=== PATIENT | male | born 1975 | race Caucasian/White ===

== ENCOUNTER 2020-06-02 07:59 | Outpatient (REF) | payer OTHER, SELFPAY ==
[2020-06-02 08:26] LABS: COVID-19 Test Negative (Negative); IDNOW Serial# 55D5AD1C
== END 2020-06-02 08:00 | disposition home or self-care (01) ==
LOC: HO.EMPCOV 07:59
PROVIDERS: PCP Internal Medicine Medical Oncology; Visit Provider Internal Medicine Medical Oncology
DX: Z03.818 Encounter for observation for suspected exposure to other biological agents ruled out (principal)
CPT/HCPCS: 87635; C9803

== ENCOUNTER 2021-12-09 06:26 | Inpatient (IN) | payer MEDICAID, SELFPAY ==
[2021-12-09] VITALS (22 sets, daily range): BP systolic 98–159; BP diastolic 57–88; PULSE 100–161; RESP 12–32; TEMP 34.4–38.2; O2SAT 93–100; BMI 27.1
--- NOTE | 2021-12-09 | EEG_ITS ---
This is a 16-channel portable EEG performed in ICU. The patient was intubated and on propofol, but it was stopped before the EEG. Background EEG rhythm was low to medium amplitude fast with no obvious asymmetry or paroxysmal tendency. No definite sharp wave spikes, epileptic discharges, or asymmetry noted. Photic stimulation and hyperventilation were not performed. Cardiac lead revealed sinus tachycardia. IMPRESSION: No significant abnormality noted on this EEG. Cardiac lead revealed sinus tachycardia. MD RAVINDRA George/LISSETT / [id number]
--- NOTE | ~2021-12-09 | XR_ITS ---
EXAMINATION: XR CHEST CLINICAL INFORMATION: OG tube and endotracheal tube placement COMPARISON: None TECHNIQUE: Frontal view of the chest was obtained. FINDINGS: Status post endotracheal tube placement with its distal tip approximately 4.6 cm from the level of the mega. Enteric tube courses through the esophagus below the left hemidiaphragm, its distal portion is not included in the [id number] though presumably within the stomach. Bilateral low lung volumes. Slight accentuation of the pulmonary vasculature. No pneumothorax. Trachea is midline. Cardiomediastinal silhouette is not enlarged. No large pleural effusion. Osseous structures are intact. Soft tissues are unremarkable. XR/XR chest 1V IMPRESSION: 1. Status post endotracheal tube placement with its distal tip approximately 4.6 cm from the level of the mega. 2. Enteric tube courses through the esophagus below the left hemidiaphragm, its distal portion is not included in the [id number] though presumably within the stomach. 3. Bilateral low lung volumes. 4. Slight accentuation of the pulmonary vasculature.
--- NOTE | ~2021-12-09 | CT_ITS ---
EXAMINATION: CT HEAD WITHOUT CONTRAST CLINICAL INFORMATION: Fall unresponsive COMPARISON: None TECHNIQUE: Contiguous axial imaging was performed from the skull base to vertex without intravenous administration of contrast. This CT examination was performed using dose optimization techniques as appropriate, variously including the following: *Automated exposure control *Adjustment of mA and/or kV according to patient size (this includes techniques or standardized protocols for targeted exams where dose is matched to indication/reason for exam; i.e. extremities or head) *Use of iterative reconstruction technique DLP: 1363 mGy-cm FINDINGS: There is no evidence of acute intracranial hemorrhage or territorial infarction. No abnormal mass effect or midline shift is seen. [place] to white matter differentiation is well preserved. No extra-axial fluid collections are identified. The ventricles are normal in size. There is no abnormal attenuation within the brain parenchyma. Mild hyperostosis frontalis interna. The osseous structures and soft tissues are normal. Mucoperiosteal thickening of the maxillary sinus with partially visualized calcifications. The mastoid air cells and visualized portions of the paranasal sinuses are well aerated. CT/CT cervical spine wo con IMPRESSION: No acute intracranial pathology. EXAMINATION: Noncontrast CT scan of the cervical spine. INDICATION: Fall unresponsive COMPARISON: None. TECHNIQUE: Helical, multidetector axial images were obtained from the occiput to the upper thorax. Coronal and sagittal reformats of the cervical spine were provided for interpretation. DLP: 1363 mGy-cm FINDINGS: No acute fractures or dislocations of the cervical spine are seen. Mild multilevel degenerative changes. Anatomic alignment and positioning of the vertebral bodies and posterior elements is noted. The atlantoaxial joint and craniovertebral articulations are normal without evidence of subluxation. There is no prevertebral soft tissue swelling. The thyroid gland and visualized portions of the lung apices and mediastinum are unremarkable. Endotracheal tube in place. IMPRESSION: 1. No acute visible fracture or dislocation. 2. Mild multilevel degenerative changes. 3. Endotracheal tube in place.
--- NOTE | 2021-12-09 06:34 | ECG_ITS ---
Test Reason : UNRESPONSIVE Blood Pressure : / mmHG Vent. Rate : 169 BPM Atrial Rate : 000 BPM P-R Int : 000 ms QRS Dur : 094 ms QT Int : 298 ms P-R-T Axes : 000 010 047 degrees QTc Int : 499 ms Artifact in tracing Likely Sinus tachycardia Possible Inferior infarct , age undetermined Abnormal ECG No previous ECGs available Referred By: Deborah Fortune Electronically Signed By:CURLY GARCIA
[2021-12-09 06:47] LABS: MANUAL DIFF FLAG NO
[2021-12-09 06:51] LABS: Basophils Percent Auto 0.3 % (0-2); Eosinophils Absolute Auto 0.1 X10*3/uL (0.0-0.4); Eosinophils Percent Auto 1.1 % (0-4); Hematocrit 40.8 % (42.0-52.0); Hemoglobin 13.1 g/dl (14.0-18.0); Imm Gran Abs Auto 0.07 X10*3/uL (0.00-0.03); Imm Gran Pct Auto 1.1 % (0.0-0.4); Lymphocytes Absolute Auto 1.8 X10*3/uL (1.2-4.9); Lymphocytes Percent Auto 28.5 % (20-40); Mean Corpuscular HGB Conc 32.1 g/dl (31.0-36.0); Mean Corpuscular Hemoglobin 34.7 pg (27.0-33.0); Mean Corpuscular Volume 107.9 fL (80.0-98.0); Monocytes Absolute Auto 0.8 X10*3/uL (0.1-1.2); Monocytes Percent Auto 13.1 % (2-11); Neutrophils Absolute Auto 3.4 x10*3/uL (2.0-8.3); Neutrophils Percent Auto 55.9 % (45-73); Red Blood Count 3.78 X10*6/uL (4.60-5.80); Red Cell Distribution Width 16.1 % (11.0-16.0); White Blood Count 6.2 X10*3/uL (4.8-10.8)
[2021-12-09 06:52] LABS: Platelet Count 44 X10*3/uL (160-400)
[2021-12-09 06:57] LABS: Acetone, serum QL Negative (Negative)
[2021-12-09] MEDS: Midazolam HCl/PF 2 MG/2 ML VIAL IVPUSH (07:00)
[2021-12-09] MEDS: propofoL 1,000 MG/100 ML VIAL 4.73 MG IVCONT ×2 (07:00→22:23)
[2021-12-09] MEDS: Succinylcholine Chloride 200 MG/10 ML VIAL 100 MG IVPUSH (07:00)
[2021-12-09 07:03] LABS: INTERNATIONAL NORM RATIO 1.3 (0.9-1.1); Prothrombin Time 14.4 SEC (9.9-13.0)
--- NOTE | 2021-12-09 07:04 | ED_ITS ---
HPI - General Adult General Chief complaint: Seizure Stated complaint: SEIZURE Time Seen by Provider: 12/09/21 06:34 Source: family (Father) and EMS Mode of arrival: EMS Limitations: altered mental status History of Present Illness HPI narrative: 46 years old male came in for evaluation of being unresponsive. 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 No documentation of recent alcohol abuse. Father declined history of drug abuse. Related Data Allergies Allergy/AdvReac Type Severity Reaction Status Date / Time Seasonal Allergy Unknown Uncoded 02/29/12 00:00 Review of Systems Review of Systems: Yes unobtainable due to endotracheal tube and Unobtainable due to mental condition [facility] Social History Social History Alcohol intake: current Patient Tobacco Use Status: Tobacco use Unknown Use of substances other than those prescribed or required for medical reasons: Unable to respond Advance Directives: No Physical Exam ED Vital Signs: Vital Signs - 24 hr 12/09/21 07:01 12/09/21 08:00 12/09/21 08:39 Temperature 100.0 F Pulse Rate 136 H Respiratory Rate 18 Blood Pressure 113/75 Pulse Oximetry 100 Oxygen Delivery Method Mechanical Ventilation Fraction of Inspired Oxygen 50 50 40 BMI result Body Mass Index 27.1 Vital signs have been reviewed as appeared to be correct. Blood pressure kati l. Heart rate normal. Respiration rate normal. Temperature normal. Oxygen saturation normal. Appearance: Unresponsive, with continuous seizure activity. Head: Normal external exam. Normocephalic. Atraumatic. No Thomas signs noted. No raccoon eyes noted, dry red blood around his mouth. Eyes: PERRLA. EOMI. Conjunctiva and sclera normal. Eyelids normal. ENT: TM's Normal. Pharynx normal. Uvula midline. Moist mucous membranes. No trismus noted. No drooling noted. No muffled voice noted. Neck: Normal inspection. Neck supple. FROM. No adenopathy. Thyroid Normal. No meningeal signs. No neck mass noted. CVS: Normal heart rate and rhythm. Heart sound normal. No murmurs noted. Pulses normal throughout. Respiratory: No respiratory distress. Painless inspiration. Breath sounds normal. No wheezes/rales/rhonchi noted. Chest nontender. No accessory muscle usage noted or decreased air movement noted. Abdomen: Soft and nontender. Bowel sounds normal in all 4 quadrants. No distention noted. No organomegaly noted. No visible injury noted. Back: No CVA tenderness. Full range of motion noted. Skin: Skin warm and dry. Normal skin color. Normal skin turgor. No rashes/lesions/lacerations noted. Extremities: No lower extremity edema. Extremities exhibit normal range of motion. Extremities nontender. Neuro: Unresponsive Cranial nerve exam: II-XII are grossly intact No motor deficit. No sensory deficit. Reflexes normal. Course Course Course Narrative: Assessment and plan. 46-year-old male came in for evaluation of pain unresponsive, patient sustained status epilepticus in the ED, required intubation and multiple doses of Ativan/Versed, patient is on propofol drip patient also received a load of Dilantin, needed intubation for continuous propofol drip and muscle paralysis, will admit to ICU. The case was discussed with Dr. Deleon. Severe metabolic acidosis will increase respiratory rate with increased sedation. NG tube draining mix of blood and coffee-ground, will start the patient on Protonix. And keep monitoring the gastric output. Procedures Intubation Time out performed: Yes sedative: Versed paralytic: Succinylcholine Laryngoscope: More ET Tube Size: 7.5 ET Tube Uncuffed: No Tube Secured Depth (cm): 23 Tube Secured Location: lips Tube Placement Confirmation: visualized tube passing through cords, equal breath sounds bilaterally, no breath sounds over epigastrium and confirmation by capnometry Patient Tolerated Procedure: well Intubation Complications: none Medical Decision Making Lab Data Lab results reviewed: Yes I reviewed the patient's lab results. Result diagrams: 12/09/21 06:37 12/09/21 06:37 Labs: Lab Results 12/09/21 12/09/21 12/09/21 Range/Units 06:37 06:37 06:37 WBC 6.2 (4.8-10.8) X10*3/uL RBC 3.78 L (4.60-5.80) X10*6/uL Hgb 13.1 L (14.0-18.0) g/dl Hct 40.8 L (42.0-52.0) % MCV 107.9 H (80.0-98.0) fL MCH 34.7 H (27.0-33.0) pg MCHC 32.1 (31.0-36.0) g/dl RDW 16.1 H (11.0-16.0) % Plt Count 44 L (160-400) X10*3/uL MPV 11.0 (9.4-12.4) fL Immature Gran % (Auto) 1.1 H (0.0-0.4) % Neut % (Auto) 55.9 (45-73) % Lymph % (Auto) 28.5 (20-40) % [place] % (Auto) 13.1 H (2-11) % Eos % (Auto) 1.1 (0-4) % Baso % (Auto) 0.3 (0-2) % Lymph # (Auto) 1.8 (1.2-4.9) X10*3/uL [place] # (Auto) 0.8 (0.1-1.2) X10*3/uL Eos # (Auto) 0.1 (0.0-0.4) X10*3/uL Baso # (Auto) 0.0 (0.0-0.2) X10*3/uL Abs Immat Gran (auto) 0.07 H (0.00-0.03) X10*3/uL Absolute Neuts (auto) 3.4 (2.0-8.3) x10*3/uL Absolute Nucleated RBC 0.000 (0.0-0.012) X10*3/uL Nucleated RBC % (auto) 0.0 (0.0-0.2) /100WBC PT 14.4 H (9.9-13.0) SEC INR 1.3 H (0.9-1.1) VBG pH (7.32-7.43) VBG pCO2 mmHg VBG pO2 mmHg VBG HCO3 (22-26) mmol/L VBG O2 Saturation % VBG Base Excess mmol/L Sodium 141 (135-145) mmol/L Potassium 3.7 (3.3-5.1) mmol/L Chloride 95 L (96-108) mmol/L Carbon Dioxide 7 L* (22-29) mmol/L Anion Gap 43 H (12-20) BUN 7 L (9-16) mg/dL Creatinine 1.14 (0.5-1.4) mg/dL Estim Creat Clear Calc TNP Estimated GFR > 60 Random Glucose 114 (60-115) mg/dL Lactic Acid (0.5-2.0) mmol/L Calcium 9.1 (8.4-10.2) mg/dL Magnesium 2.8 H (1.6-2.6) mg/dL Total Bilirubin 5.6 H (0.0-1.0) mg/dL AST 268 H (5-37) U/L ALT 108 H (0-40) U/L Alkaline Phosphatase 134 H (39-117) U/L Ammonia (13-55) umol/L Total Protein 8.6 H (6.5-8.0) g/dL Albumin 3.9 (3.5-5.0) g/dL Urine Color Urine Appearance Urine pH (5.0-8.0) Ur Specific [place] (1.005-1.025) Urine Protein (NEG-TRACE) MG/DL Urine Glucose (UA) (NEG) MG/DL Urine Ketones (NEG) MG/DL Urine Blood (NEG) Urine Nitrite (NEG) Ur Leukocyte Esterase (NEG) Urine RBC (0) /HPF Urine WBC (0-4) /HPF Ur Squamous Epith Cells /LPF Urine Bacteria /LPF Hyaline Casts /LPF Ethyl Alcohol mg/dL Acetone, Qual (Negative) COVID-19 (REGINE) (Negative) COVID-19 Clin Com 12/09/21 12/09/21 12/09/21 Range/Units 06:37 06:37 06:37 WBC (4.8-10.8) X10*3/uL RBC (4.60-5.80) X10*6/uL Hgb (14.0-18.0) g/dl Hct (42.0-52.0) % MCV (80.0-98.0) fL MCH (27.0-33.0) pg MCHC (31.0-36.0) g/dl RDW (11.0-16.0) % Plt Count (160-400) X10*3/uL MPV (9.4-12.4) fL Immature Gran % (Auto) (0.0-0.4) % Neut % (Auto) (45-73) % Lymph % (Auto) (20-40) % [place] % (Auto) (2-11) % Eos % (Auto) (0-4) % Baso % (Auto) (0-2) % Lymph # (Auto) (1.2-4.9) X10*3/uL [place] # (Auto) (0.1-1.2) X10*3/uL Eos # (Auto) (0.0-0.4) X10*3/uL Baso # (Auto) (0.0-0.2) X10*3/uL Abs Immat Gran (auto) (0.00-0.03) X10*3/uL Absolute Neuts (auto) (2.0-8.3) x10*3/uL Absolute Nucleated RBC (0.0-0.012) X10*3/uL Nucleated RBC % (auto) (0.0-0.2) /100WBC PT (9.9-13.0) SEC INR (0.9-1.1) VBG pH (7.32-7.43) VBG pCO2 mmHg VBG pO2 mmHg VBG HCO3 (22-26) mmol/L VBG O2 Saturation % VBG Base Excess mmol/L Sodium (135-145) mmol/L Potassium (3.3-5.1) mmol/L Chloride (96-108) mmol/L Carbon Dioxide (22-29) mmol/L Anion Gap (12-20) BUN (9-16) mg/dL Creatinine (0.5-1.4) mg/dL Estim Creat Clear Calc Estimated GFR Random Glucose (60-115) mg/dL Lactic Acid 31.8 H* (0.5-2.0) mmol/L Calcium (8.4-10.2) mg/dL Magnesium (1.6-2.6) mg/dL Total Bilirubin (0.0-1.0) mg/dL AST (5-37) U/L ALT (0-40) U/L Alkaline Phosphatase (39-117) U/L Ammonia (13-55) umol/L Total Protein (6.5-8.0) g/dL Albumin (3.5-5.0) g/dL Urine Color Urine Appearance Urine pH (5.0-8.0) Ur Specific [place] (1.005-1.025) Urine Protein (NEG-TRACE) MG/DL Urine Glucose (UA) (NEG) MG/DL Urine Ketones (NEG) MG/DL Urine Blood (NEG) Urine Nitrite (NEG) Ur Leukocyte Esterase (NEG) Urine RBC (0) /HPF Urine WBC (0-4) /HPF Ur Squamous Epith Cells /LPF Urine Bacteria /LPF Hyaline Casts /LPF Ethyl Alcohol 24 mg/dL Acetone, Qual Negative (Negative) COVID-19 (REGINE) (Negative) COVID-19 Clin Com 12/09/21 12/09/21 12/09/21 Range/Units 06:37 06:58 07:51 WBC (4.8-10.8) X10*3/uL RBC (4.60-5.80) X10*6/uL Hgb (14.0-18.0) g/dl Hct (42.0-52.0) % MCV (80.0-98.0) fL MCH (27.0-33.0) pg MCHC (31.0-36.0) g/dl RDW (11.0-16.0) % Plt Count (160-400) X10*3/uL MPV (9.4-12.4) fL Immature Gran % (Auto) (0.0-0.4) % Neut % (Auto) (45-73) % Lymph % (Auto) (20-40) % [place] % (Auto) (2-11) % Eos % (Auto) (0-4) % Baso % (Auto) (0-2) % Lymph # (Auto) (1.2-4.9) X10*3/uL [place] # (Auto) (0.1-1.2) X10*3/uL Eos # (Auto) (0.0-0.4) X10*3/uL Baso # (Auto) (0.0-0.2) X10*3/uL Abs Immat Gran (auto) (0.00-0.03) X10*3/uL Absolute Neuts (auto) (2.0-8.3) x10*3/uL Absolute Nucleated RBC (0.0-0.012) X10*3/uL Nucleated RBC % (auto) (0.0-0.2) /100WBC PT (9.9-13.0) SEC INR (0.9-1.1) VBG pH 6.96 L* (7.32-7.43) VBG pCO2 27 mmHg VBG pO2 143 mmHg VBG HCO3 6 L (22-26) mmol/L VBG O2 Saturation 96.0 % VBG Base Excess -24.2 mmol/L Sodium (135-145) mmol/L Potassium (3.3-5.1) mmol/L Chloride (96-108) mmol/L Carbon Dioxide (22-29) mmol/L Anion Gap (12-20) BUN (9-16) mg/dL Creatinine (0.5-1.4) mg/dL Estim Creat Clear Calc Estimated GFR Random Glucose (60-115) mg/dL Lactic Acid (0.5-2.0) mmol/L Calcium (8.4-10.2) mg/dL Magnesium (1.6-2.6) mg/dL Total Bilirubin (0.0-1.0) mg/dL AST (5-37) U/L ALT (0-40) U/L Alkaline Phosphatase (39-117) U/L Ammonia 162 H (13-55) umol/L Total Protein (6.5-8.0) g/dL Albumin (3.5-5.0) g/dL Urine Color YELLOW Urine Appearance CLEAR Urine pH 6.0 (5.0-8.0) Ur Specific [place] >= 1.030 H (1.005-1.025) Urine Protein 2+ H (NEG-TRACE) MG/DL Urine Glucose (UA) NEG (NEG) MG/DL Urine Ketones 15 (NEG) MG/DL Urine Blood 3+ H (NEG) Urine Nitrite NEG (NEG) Ur Leukocyte Esterase NEG (NEG) Urine RBC 5-9 H (0) /HPF Urine WBC 0 (0-4) /HPF Ur Squamous Epith Cells 1+ /LPF Urine Bacteria NONE /LPF Hyaline Casts 0-2 /LPF Ethyl Alcohol mg/dL Acetone, Qual (Negative) COVID-19 (REGINE) (Negative) COVID-19 Clin Com 12/09/21 Range/Units 07:51 WBC (4.8-10.8) X10*3/uL RBC (4.60-5.80) X10*6/uL Hgb (14.0-18.0) g/dl Hct (42.0-52.0) % MCV (80.0-98.0) fL MCH (27.0-33.0) pg MCHC (31.0-36.0) g/dl RDW (11.0-16.0) % Plt Count (160-400) X10*3/uL MPV (9.4-12.4) fL Immature Gran % (Auto) (0.0-0.4) % Neut % (Auto) (45-73) % Lymph % (Auto) (20-40) % [place] % (Auto) (2-11) % Eos % (Auto) (0-4) % Baso % (Auto) (0-2) % Lymph # (Auto) (1.2-4.9) X10*3/uL [place] # (Auto) (0.1-1.2) X10*3/uL Eos # (Auto) (0.0-0.4) X10*3/uL Baso # (Auto) (0.0-0.2) X10*3/uL Abs Immat Gran (auto) (0.00-0.03) X10*3/uL Absolute Neuts (auto) (2.0-8.3) x10*3/uL Absolute Nucleated RBC (0.0-0.012) X10*3/uL Nucleated RBC % (auto) (0.0-0.2) /100WBC PT (9.9-13.0) SEC INR (0.9-1.1) VBG pH (7.32-7.43) VBG pCO2 mmHg VBG pO2 mmHg VBG HCO3 (22-26) mmol/L VBG O2 Saturation % VBG Base Excess mmol/L Sodium (135-145) mmol/L Potassium (3.3-5.1) mmol/L Chloride (96-108) mmol/L Carbon Dioxide (22-29) mmol/L Anion Gap (12-20) BUN (9-16) mg/dL Creatinine (0.5-1.4) mg/dL Estim Creat Clear Calc Estimated GFR Random Glucose (60-115) mg/dL Lactic Acid (0.5-2.0) mmol/L Calcium (8.4-10.2) mg/dL Magnesium (1.6-2.6) mg/dL Total Bilirubin (0.0-1.0) mg/dL AST (5-37) U/L ALT (0-40) U/L Alkaline Phosphatase (39-117) U/L Ammonia (13-55) umol/L Total Protein (6.5-8.0) g/dL Albumin (3.5-5.0) g/dL Urine Color Urine Appearance Urine pH (5.0-8.0) Ur Specific [place] (1.005-1.025) Urine Protein (NEG-TRACE) MG/DL Urine Glucose (UA) (NEG) MG/DL Urine Ketones (NEG) MG/DL Urine Blood (NEG) Urine Nitrite (NEG) Ur Leukocyte Esterase (NEG) Urine RBC (0) /HPF Urine WBC (0-4) /HPF Ur Squamous Epith Cells /LPF Urine Bacteria /LPF Hyaline Casts /LPF Ethyl Alcohol mg/dL Acetone, Qual (Negative) COVID-19 (REGINE) Negative (Negative) COVID-19 Clin Com See Note Imaging Data Head/cervical spine CT: Attestation: I personally reviewed and interpreted this imaging study as follows: Radiologist's impression: 1.? No acute visible fracture or dislocation. 2.? Mild multilevel degenerative changes. 3.? Endotracheal tube in place. ? Critical Care Time Critical Care Time Critical Care Time: Yes Total Critical Care Time: 90 Attestation: I spent 90 minutes providing critical care service to the patient, this including time spent at the bedside to evaluate the patient, reassess the patient, monitoring vital signs, review labs, and radiographic studies, counseling the patient/family, discussing the case with consultants, disposition the patient. Discharge Plan Discharge Clinical Impression: Status epilepticus Patient Disposition: Admitted As Inpatient
[2021-12-09 07:05] LABS: Ethanol 24 mg/dL
[2021-12-09 07:15] LABS: Alanine Aminotransferase 108 U/L (0-40); Albumin Level 3.9 g/dL (3.5-5.0); Alkaline Phosphatase 134 U/L (39-117); Anion Gap 43 (12-20); Aspartate Amino Transferase 268 U/L (5-37); Bilirubin Total 5.6 mg/dL (0.0-1.0); Blood Urea Nitrogen 7 mg/dL (9-16); Calcium 9.1 mg/dL (8.4-10.2); Carbon Dioxide 7 mmol/L (22-29); Chloride 95 mmol/L (96-108); Estimated Glomerular Filt Rate > 60; Glucose Random 114 mg/dL (60-115); Magnesium 2.8 mg/dL (1.6-2.6); Potassium 3.7 mmol/L (3.3-5.1); Sodium 141 mmol/L (135-145); Total Protein 8.6 g/dL (6.5-8.0)
[2021-12-09] MEDS: LORazepam 2 MG/ML VIAL IVPUSH ×2 (07:18→08:04)
[2021-12-09] MEDS: fentaNYL citrate/PF 100 MCG/2 ML VIAL 25 MCG IVPUSH (07:18)
[2021-12-09 07:34] LABS: Lactic Acid 31.8 mmol/L (0.5-2.0)
[2021-12-09] MEDS: Midazolam HCl/NS 50 MG/50 ML PLAST..BAG IVCONT (07:50)
--- NOTE | 2021-12-09 08:05 | PC.NURSE ---
0741 additional 2mg versed administered IVP for seizure activity
[2021-12-09 08:11] LABS: Ammonia 162 umol/L (13-55)
[2021-12-09 08:11] LABS: Appearance Urine CLEAR; Color Urine YELLOW; Glucose Urine UA NEG (NEG); Leukocyte Esterase Urine NEG (NEG); Nitrite Urine NEG (NEG); Specific Gravity - Urine >= 1.030 (1.005-1.025); UACC Culture Trigger NO; Urine Blood 3+ (NEG); Urine Ketones 15 MG/DL (NEG); Urine Protein 2+ MG/DL (NEG-TRACE)
[2021-12-09 08:12] LABS: COVID-19 Test Negative (Negative); IDNOW Serial# 16C4AD1C
[2021-12-09 08:20] LABS: VBG Base Excess -24.2 mmol/L; VBG HCO3 6 mmol/L (22-26); VBG pCO2 27 mmHg; VBG pO2 143 mmHg
[2021-12-09 08:21] LABS: VBG pH 6.96 (7.32-7.43); Venous Blood Gas Refer to POC result
[2021-12-09 08:23] LABS: Hyaline Casts Urine 0-2 /LPF; Squamous Epithelial Cell Urine 1+ /LPF
[2021-12-09] MEDS: Thiamine HCL 100 MG in 0.9 % Sodium Chloride 100 ML 202 MG IV (08:26)
[2021-12-09 08:27] LABS: WBC Urine 0 /HPF (0-4)
--- NOTE | 2021-12-09 08:35 | PC.NURSE ---
small sedation holiday done for Dr. Deleon, prop decreased to 30mcg/kg/hr for approximately 3 minutes. Rate increased back to 50mcg/kg/min
--- NOTE | 2021-12-09 08:39 | PC.NURSE ---
Rate increased to 30 on vent by marketing teacher. 2nd L of NS hung per verbal order from dr. peters.
--- NOTE | 2021-12-09 08:44 | P.CNNE_ITS ---
History of Present Illness Data of Consult Service Date: 12/09/21 Primary Care Provider: Unknown Physician HPI Reason for consult: Status epilepticus 46 years old man who probably has underlying history of chronic alcoholism and related complications including alcoholic liver disease was found to be unresponsive in his room after his father heard a noise. Blood was noted around his mouth and he was brought to emergency room where he was noted to have generalized convulsion type of movements. He was given multiple doses of benzodiazepine and ultimately was paralyzed, sedated and intubated. When I saw him he was on propofol drip. According to the documentation, he lived in [place]. 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 Also he had a similar episode in [place] but apparently he was not on any seizure medicine. Review of Systems Review of Systems: Could not be done with him PMFSH Social History Social History Alcohol intake: current Patient Tobacco Use Status: Tobacco use Unknown Use of substances other than those prescribed or required for medical reasons: Unable to respond Advance Directives: No Meds Allergies Allergy/AdvReac Type Severity Reaction Status Date / Time Seasonal Allergy Unknown Uncoded 02/29/12 00:00 Active Medications: Current Medications Propofol (Diprivan) 1,000 mg in 100 mls @ 0 mls/hr IVCONT .Q0M [facility]; Protocol Last Titration: 12/09/21 08:34 Dose: 50 mcg/kg/min, 23.64 mls/hr Midazolam HCl (Versed) 50 mg in 50 mls @ 2 mls/hr IVCONT .Q24H [facility] Last Admin: 12/09/21 07:50 Dose: 2 mg/hr, 2 mls/hr Pharmacy Consult (Consult Rx Etoh Phenob Po Dose) 1 each MISCELLANE ONCE PRN; Protocol PRN Reason: Consult order Physical Exam Vital Signs: Vital Signs: Last Vital Signs Temp 100.0 F 12/09/21 08:00 Pulse 136 H 12/09/21 08:00 Resp 18 12/09/21 08:00 BP 113/75 12/09/21 08:00 Pulse Ox 100 12/09/21 08:00 O2 Del Method 12/09/21 08:00 FiO2 50 12/09/21 08:00 BMI result Body Mass Index 27.1 Neuro: Other: He was intubated and sedated on propofol drip. Drip was like 10 for examination. Few seconds after that, he started having clonic type of movements of legs and little bit decerebrate posturing of arms. Propofol drip was restarted after that. His pupils were round reactive to light. There was no gaze deviation or nystagmus that I had noted. Face seems symmetrical. Deep tendon reflexes were absent with flat plantars. Results Labs CBC & Chem 7: 12/09/21 06:37 12/09/21 06:37 Labs: Short CBC 12/09/21 Range/Units 06:37 WBC 6.2 (4.8-10.8) X10*3/uL Hgb 13.1 L (14.0-18.0) g/dl Hct 40.8 L (42.0-52.0) % Plt Count 44 L (160-400) X10*3/uL BMP 12/09/21 06:37 Sodium 141 Potassium 3.7 Chloride 95 L Carbon Dioxide 7 L* BUN 7 L Creatinine 1.14 Calcium 9.1 Liver Function 12/09/21 Range/Units 06:37 Total Bilirubin 5.6 H (0.0-1.0) mg/dL AST 268 H (5-37) U/L ALT 108 H (0-40) U/L Alkaline Phosphatase 134 H (39-117) U/L Albumin 3.9 (3.5-5.0) g/dL Urine 12/09/21 Range/Units 06:58 Urine Color YELLOW Urine Appearance CLEAR Urine pH 6.0 (5.0-8.0) Ur Specific [place] >= 1.030 H (1.005-1.025) Urine Protein 2+ H (NEG-TRACE) MG/DL Urine Glucose (UA) NEG (NEG) MG/DL Noncontrast head CT revealed mild diffuse cerebellar and cerebral cortical atrophy. Ammonia level was 162 and liver enzymes were high. Assessment and Plan (1) Status epilepticus: Status: Acute 46 years old man who probably has underlying alcoholic liver disease who fell in his room and his family found him unresponsive with blood around his mouth suggesting that he might have lesion that. He was brought to emergency room where he was noted to have generalized come and was given doses of benzodiazepine and then a g of Dilantin. At this time he was intubated sedated with propofol. Overall clinical picture is suggestive of epileptic seizures due to chronic alcoholism. There is also evidence of liver failure. My re commendation at this time is to switch it to levetiracetam instead of Dilantin as levetiracetam might be less harmful to liver. I would suggest a g of levetiracetam and then continuing 1000 mg twice a day. Once levetiracetam is given, we should obtain an EEG by and during the EEG we should light and propofol to see if he has seizing or not. In the meantime he needed treatment for a hyperammonemia. I also recommend testing for other drug abuse to have better perspective. Thiamine and folate should also be given. At this time there is no obvious indication of infection or any history of recent cold or flu-like illness. If he spikes a fever without any obvious explanation, lumbar puncture should be considered. Finally an MRI of brain is also needed but that could wait until he is extubated and more stable. Procedures Date of Service Date of Service: 12/09/21
[2021-12-09 08:45] LABS: Reflex Lactate? Lactic Acid Added
--- NOTE | 2021-12-09 08:58 | PC.NURSE ---
notified of Dark OGT output.
[2021-12-09 09:00] LABS: ABG Base Excess -6.6 mmol/L; ABG HCO3 16 mmol/L (22-26); ABG pCO2 27 mmHg (32-45); ABG pH 7.39 (7.35-7.45); ABG pO2 133 mmHg (83-108)
[2021-12-09] MEDS: Pantoprazole Sodium 40 MG/10 ML VIAL IVPUSH (09:13)
[2021-12-09] MEDS: Chlorhexidine Gluc Oral Rinse 15 ML MOUTHWASH BUCCAL (09:16)
[2021-12-09] MEDS: propofoL 1,000 MG/100 ML VIAL 23.64 MG IVCONT (09:23)
[2021-12-09 09:36] LABS: ABG Refer to POC result
[2021-12-09] MEDS: Famotidine/PF 20 MG/2 ML VIAL IVPUSH ×2 (09:48→20:14)
[2021-12-09] MEDS: Heparin Sodium,Porcine 5,000 UNIT/ML VIAL 5000 UNIT SUBCUT ×2 (09:55→16:46)
[2021-12-09] MEDS: levETIRAcetam in NaCl (iso-os) 1,000 MG/100 ML PIGGYBACK 400 MG IV ×2 (10:09→22:00)
[2021-12-09 10:14] LABS: Amphetamine Screen Urine Not Detected (Not Detect); Barbiturates, Urine Not Detected (Not Detect); Benzodiazepines Screen Urine Not Detected (Not Detect); Cannabinoid Screen Urine POSITIVE (Not Detect); Cocaine Screen Urine Not Detected (Not Detect); Fentanyl, urine Not Detected (Not Detect); Opiate Screen Urine Not Detected (Not Detect); Phencyclidine Screen Urine Not Detected (Not Detect)
--- NOTE | 2021-12-09 10:18 | PHA.MEDREC ---
MED REC COMPLETE, RETRIEVED HISTORY FROM PATIENTS DOCTORS OFFICE DR KENT, PATIENT DOES NOT CURRENTLY LIVE AROUND HERE, WILL NEED TO VERIFY IF PATIENT IS STILL ON THESE MEDICATIONS, BASED ON OFFICE VISIT FROM DECEMBER 2020 Pharmacy Consult ? Medication Reconciliation Pharmacy has completed the medication reconciliation.
[2021-12-09] MEDS: fentaNYL citrate/NS 1,000 MCG/100 ML PLAST..BAG 7.5 MCG IVCONT ×2 (11:00→22:09)
[2021-12-09] MEDS: fentaNYL citrate/PF 100 MCG/2 ML VIAL IVPUSH (11:08)
[2021-12-09 11:20] LABS: ~Lactic Acid-LAB USE ONLY 7.3 mmol/L (0.5-2.0)
--- NOTE | 2021-12-09 12:58 | PM.CCHP ---
History of Present Illness Date of Service: 12/09/21 Chief Complaint: Status epilepticus 46-year-old gentleman with underlying history of alcohol abuse admitted on 12/09/2021 with alteration of mental status and status epilepticus requiring intubation and ventilatory support. CT head negative for acute pathology. Patient has been started on Keppra. EEG with no seizure recurrence. Patient has been evaluated by neurology service and admitted to intensive care unit. Review of Systems Review of Systems: Yes unobtainable due to endotracheal tube, Unobtainable due to mental condition and Unobtainable due to mental status PMF Family History Family history: reviewed and not pertinent Social History Social History Household Members: None Housing: Other Housing Other:: lives with his father Do you presently have visiting nurse or other home services: No Alcohol intake: current Patient Tobacco Use Status: Never used Tobacco Use of substances other than those prescribed or required for medical reasons: No Have you been hit, kicked, punched, or otherwise hurt by someone within the past year? If so, by whom?: No Do you feel safe in your current relationship?: No Current Relationship Is there a partner from a previous relationship who is making you feel unsafe now?: No Spiritual Healthcare Practices: [employer] Healthcare Practices: [employer] Cultural Healthcare Practices: n/a Advance Directives: No Advance Directives Information Provided: No (Med Condition) Recently lost weight without trying: No Eating poorly because of decreased appetite: No Nutrition Risks: No Nutritional Risk Poor oral hygiene: No Meds Allergies Allergy/AdvReac Type Severity Reaction Status Date / Time Seasonal Allergy Unknown Uncoded 02/29/12 00:00 Active Medications: Current Medications Famotidine (Famotidine/Pf 20 Mg/2 Ml Vial) 20 mg IVPUSH BID [facility] Last Admin: 12/09/21 09:48 Dose: 20 mg Fentanyl (Fentanyl Citrate/Pf 100 Mcg/2 Ml Vial) 100 mcg IVPUSH Q2H PRN; Protocol PRN Reason: Ventilator synchrony Heparin Sodium (Porcine) (Heparin Sodium,Porcine 5,000 Unit/Ml Vial) 5,000 unit SUBCUT Q8H [facility] Last Admin: 12/09/21 09:55 Dose: 5,000 unit Propofol (Diprivan) 1,000 mg in 100 mls @ 0 mls/hr IVCONT .Q0M [facility]; Protocol Last Admin: 12/09/21 09:23 Dose: 50 mcg/kg/min, 23.64 mls/hr Midazolam HCl (Versed) 50 mg in 50 mls @ 2 mls/hr IVCONT .Q24H [facility] Last Admin: 12/09/21 07:50 Dose: 2 mg/hr, 2 mls/hr Levetiracetam (Keppra) 1,000 mg in 100 mls @ 400 mls/hr IV Q12H [facility] Last Admin: 12/09/21 10:09 Dose: 400 mls/hr Fentanyl (Sublimaze/Ns) 1,000 mcg in 100 mls @ 0 mls/hr IVCONT .Q0M [facility]; Protocol Naloxone HCl (Naloxone Hcl 0.4 Mg/Ml Vial) 0.2 mg IVPUSH Q2M PRN PRN Reason: Excessive sedation or RR < 8 Pharmacy Consult (Consult Rx Etoh Phenob Po Dose) 1 each MISCELLANE ONCE PRN; Protocol PRN Reason: Consult order Phenobarbital 100 mg/ (Phenobarbital 60 mg) 160 mg PO Q3H [facility] Stop: 12/09/21 16:01 Phenobarbital (Phenobarbital 15 Mg Tablet) 45 mg PO BID [facility] Stop: 12/11/21 09:01 Phenobarbital (Phenobarbital 15 Mg Tablet) 15 mg PO BID [facility] Stop: 12/13/21 09:01 Phenobarbital (Phenobarbital 15 Mg Tablet) 15 mg PO DAILY@2100 [facility] Stop: 12/15/21 21:01 Home Medications Medication Instructions Recorded Confirmed Last Taken Type multivitamin 1 tab PO DAILY 12/09/21 12/09/21 Unknown History nadolol 20 mg tablet 40 mg PO DAILY 12/09/21 12/09/21 Unknown History spironolactone 50 mg tablet 50 mg PO DAILY 12/09/21 12/09/21 Unknown History Physical Exam Vital Signs: Vital Signs: Last Vital Signs Temp 100.2 F 12/09/21 12:00 Pulse 117 H 12/09/21 12:00 Resp 30 H 12/09/21 12:00 BP 109/67 12/09/21 12:00 Pulse Ox 100 12/09/21 12:00 O2 Del Method 12/09/21 12:00 FiO2 40 12/09/21 12:00 BMI result Body Mass Index 27.1 Const: General: no acute distress and other ( Sedated on the vent) Eyes: Sclerae: sclerae normal EOM: EOMs intact bilaterally Neck: Neck: Yes no lymphadenopathy, Yes trachea midline and Yes supple Resp: Effort & Inspection: normal respiratory effort and no respiratory distress Auscultation: clear to auscultation bilaterally Cardio: Rate: regular rate Rhythm: regular rhythm Heart sounds: no gallops, no murmurs and no rubs GI: Palpation (GI): Soft to palpation and Other GI palpation findings present ( Nontender) Auscultation: normal bowel sounds Extrem: General: Yes no pedal edema, No clubbing and No cyanosis Results Labs CBC and Chem 7: 12/09/21 06:37 12/09/21 06:37 Labs: Laboratory Results - last 24 hr 12/09/21 12/09/21 12/09/21 06:37 06:37 06:37 MCV 107.9 H MCH 34.7 H MCHC 32.1 RDW 16.1 H Plt Count 44 L MPV 11.0 Immature Gran % (Auto) 1.1 H Neut % (Auto) 55.9 Lymph % (Auto) 28.5 [place] % (Auto) 13.1 H Eos % (Auto) 1.1 Baso % (Auto) 0.3 Lymph # (Auto) 1.8 [place] # (Auto) 0.8 Eos # (Auto) 0.1 Baso # (Auto) 0.0 Abs Immat Gran (auto) 0.07 H Absolute Neuts (auto) 3.4 Absolute Nucleated RBC 0.000 Nucleated RBC % (auto) 0.0 PT 14.4 H INR 1.3 H O2 Saturation ABG pH at Pt Temp ABG pCO2 at Pt Temp ABG pO2 at Pt Temp ABG HCO3 ABG Base Excess (Actual) VBG pH VBG pCO2 VBG pO2 VBG HCO3 VBG O2 Saturation VBG Base Excess Anion Gap 43 H Estim Creat Clear Calc TNP Estimated GFR > 60 Random Glucose 114 Lactic Acid Lactic Acid F/U @ 2Hr Calcium 9.1 Magnesium 2.8 H Total Bilirubin 5.6 H AST 268 H ALT 108 H Alkaline Phosphatase 134 H Ammonia Total Protein 8.6 H Albumin 3.9 Urine Color Urine Appearance Urine pH Ur Specific [place] Urine Protein Urine Glucose (UA) Urine Ketones Urine Blood Urine Nitrite Ur Leukocyte Esterase Urine RBC Urine WBC Ur Squamous Epith Cells Urine Bacteria Hyaline Casts Urine Opiates Screen Urine Fentanyl Screen Ur Barbiturates Screen Ur Phencyclidine Scrn Ur Amphetamines Screen U Benzodiazepines Scrn Urine Cocaine Screen U Marijuana (THC) Screen Ethyl Alcohol Acetone, Qual COVID-19 (REGINE) COVID-19 [employer] 12/09/21 12/09/21 12/09/21 06:37 06:37 06:37 MCV MCH MCHC RDW Plt Count MPV Immature Gran % (Auto) Neut % (Auto) Lymph % (Auto) [place] % (Auto) Eos % (Auto) Baso % (Auto) Lymph # (Auto) [place] # (Auto) Eos # (Auto) Baso # (Auto) Abs Immat Gran (auto) Absolute Neuts (auto) Absolute Nucleated RBC Nucleated RBC % (auto) PT INR O2 Saturation ABG pH at Pt Temp ABG pCO2 at Pt Temp ABG pO2 at Pt Temp ABG HCO3 ABG Base Excess (Actual) VBG pH VBG pCO2 VBG pO2 VBG HCO3 VBG O2 Saturation VBG Base Excess Anion Gap Estim Creat Clear Calc Estimated GFR Random Glucose Lactic Acid 31.8 H* Lactic Acid F/U @ 2Hr Calcium Magnesium Total Bilirubin AST ALT Alkaline Phosphatase Ammonia Total Protein Albumin Urine Color Urine Appearance Urine pH Ur Specific [place] Urine Protein Urine Glucose (UA) Urine Ketones Urine Blood Urine Nitrite Ur Leukocyte Esterase Urine RBC Urine WBC Ur Squamous Epith Cells Urine Bacteria Hyaline Casts Urine Opiates Screen Urine Fentanyl Screen Ur Barbiturates Screen Ur Phencyclidine Scrn Ur Amphetamines Screen U Benzodiazepines Scrn Urine Cocaine Screen U Marijuana (THC) Screen Ethyl Alcohol 24 Acetone, Qual Negative COVID-19 (REGINE) COVID-19 [employer] 12/09/21 12/09/21 12/09/21 06:37 06:58 07:51 MCV MCH MCHC RDW Plt Count MPV Immature Gran % (Auto) Neut % (Auto) Lymph % (Auto) [place] % (Auto) Eos % (Auto) Baso % (Auto) Lymph # (Auto) [place] # (Auto) Eos # (Auto) Baso # (Auto) Abs Immat Gran (auto) Absolute Neuts (auto) Absolute Nucleated RBC Nucleated RBC % (auto) PT INR O2 Saturation ABG pH at Pt Temp ABG pCO2 at Pt Temp ABG pO2 at Pt Temp ABG HCO3 ABG Base Excess (Actual) VBG pH 6.96 L* VBG pCO2 27 VBG pO2 143 VBG HCO3 6 L VBG O2 Saturation 96.0 VBG Base Excess -24.2 Anion Gap Estim Creat Clear Calc Estimated GFR Random Glucose Lactic Acid Lactic Acid F/U @ 2Hr Calcium Magnesium Total Bilirubin AST ALT Alkaline Phosphatase Ammonia 162 H Total Protein Albumin Urine Color YELLOW Urine Appearance CLEAR Urine pH 6.0 Ur Specific [place] >= 1.030 H Urine Protein 2+ H Urine Glucose (UA) NEG Urine Ketones 15 Urine Blood 3+ H Urine Nitrite NEG Ur Leukocyte Esterase NEG Urine RBC 5-9 H Urine WBC 0 Ur Squamous Epith Cells 1+ Urine Bacteria NONE Hyaline Casts 0-2 Urine Opiates Screen Urine Fentanyl Screen Ur Barbiturates Screen Ur Phencyclidine Scrn Ur Amphetamines Screen U Benzodiazepines Scrn Urine Cocaine Screen U Marijuana (THC) Screen Ethyl Alcohol Acetone, Qual COVID-19 (REGINE) COVID-19 [employer] 12/09/21 12/09/21 12/09/21 07:51 08:51 10:55 MCV MCH MCHC RDW Plt Count MPV Immature Gran % (Auto) Neut % (Auto) Lymph % (Auto) [place] % (Auto) Eos % (Auto) Baso % (Auto) Lymph # (Auto) [place] # (Auto) Eos # (Auto) Baso # (Auto) Abs Immat Gran (auto) Absolute Neuts (auto) Absolute Nucleated RBC Nucleated RBC % (auto) PT INR O2 Saturation 99.0 ABG pH at Pt Temp 7.39 ABG pCO2 at Pt Temp 27 L ABG pO2 at Pt Temp 133 H ABG HCO3 16 L ABG Base Excess (Actual) -6.6 VBG pH VBG pCO2 VBG pO2 VBG HCO3 VBG O2 Saturation VBG Base Excess Anion Gap Estim Creat Clear Calc Estimated GFR Random Glucose Lactic Acid Lactic Acid F/U @ 2Hr 7.3 H* Calcium Magnesium Total Bilirubin AST ALT Alkaline Phosphatase Ammonia Total Protein Albumin Urine Color Urine Appearance Urine pH Ur Specific [place] Urine Protein Urine Glucose (UA) Urine Ketones Urine Blood Urine Nitrite Ur Leukocyte Esterase Urine RBC Urine WBC Ur Squamous Epith Cells Urine Bacteria Hyaline Casts Urine Opiates Screen Urine Fentanyl Screen Ur Barbiturates Screen Ur Phencyclidine Scrn Ur Amphetamines Screen U Benzodiazepines Scrn Urine Cocaine Screen U Marijuana (THC) Screen Ethyl Alcohol Acetone, Qual COVID-19 (REGINE) Negative COVID-19 Clin Com See Note 12/09/21 Unknown MCV MCH MCHC RDW Plt Count MPV Immature Gran % (Auto) Neut % (Auto) Lymph % (Auto) [place] % (Auto) Eos % (Auto) Baso % (Auto) Lymph # (Auto) [place] # (Auto) Eos # (Auto) Baso # (Auto) Abs Immat Gran (auto) Absolute Neuts (auto) Absolute Nucleated RBC Nucleated RBC % (auto) PT INR O2 Saturation ABG pH at Pt Temp ABG pCO2 at Pt Temp ABG pO2 at Pt Temp ABG HCO3 ABG Base Excess (Actual) VBG pH VBG pCO2 VBG pO2 VBG HCO3 VBG O2 Saturation VBG Base Excess Anion Gap Estim Creat Clear Calc Estimated GFR Random Glucose Lactic Acid Lactic Acid F/U @ 2Hr Calcium Magnesium Total Bilirubin AST ALT Alkaline Phosphatase Ammonia Total Protein Albumin Urine Color Urine Appearance Urine pH Ur Specific [place] Urine Protein Urine Glucose (UA) Urine Ketones Urine Blood Urine Nitrite Ur Leukocyte Esterase Urine RBC Urine WBC Ur Squamous Epith Cells Urine Bacteria Hyaline Casts Urine Opiates Screen Not Detected Urine Fentanyl Screen Not Detected Ur Barbiturates Screen Not Detected Ur Phencyclidine Scrn Not Detected Ur Amphetamines Screen Not Detected U Benzodiazepines Scrn Not Detected Urine Cocaine Screen Not Detected U Marijuana (THC) Screen POSITIVE H Ethyl Alcohol Acetone, Qual COVID-19 (REGINE) COVID-19 Clin Com Imaging Radiologist's Impressions: Impressions Cervical Spine CT 12/09/21 08:11 IMPRESSION: No acute intracranial pathology. EXAMINATION: Noncontrast CT scan of the cervical spine. INDICATION: Fall unresponsive COMPARISON: None. TECHNIQUE: Helical, multidetector axial images were obtained from the occiput to the upper thorax. Coronal and sagittal reformats of the cervical spine were provided for interpretation. DLP: 1363 mGy-cm FINDINGS: No acute fractures or dislocations of the cervical spine are seen. Mild multilevel degenerative changes. Anatomic alignment and positioning of the vertebral bodies and posterior elements is noted. The atlantoaxial joint and craniovertebral articulations are normal without evidence of subluxation. There is no prevertebral soft tissue swelling. The thyroid gland and visualized portions of the lung apices and mediastinum are unremarkable. Endotracheal tube in place. IMPRESSION: 1. No acute visible fracture or dislocation. 2. Mild multilevel degenerative changes. 3. Endotracheal tube in place. Head CT 12/09/21 08:11 IMPRESSION: No acute intracranial pathology. EXAMINATION: Noncontrast CT scan of the cervical spine. INDICATION: Fall unresponsive COMPARISON: None. TECHNIQUE: Helical, multidetector axial images were obtained from the occiput to the upper thorax. Coronal and sagittal reformats of the cervical spine were provided for interpretation. DLP: 1363 mGy-cm FINDINGS: No acute fractures or dislocations of the cervical spine are seen. Mild multilevel degenerative changes. Anatomic alignment and positioning of the vertebral bodies and posterior elements is noted. The atlantoaxial joint and craniovertebral articulations are normal without evidence of subluxation. There is no prevertebral soft tissue swelling. The thyroid gland and visualized portions of the lung apices and mediastinum are unremarkable. Endotracheal tube in place. IMPRESSION: 1. No acute visible fracture or dislocation. 2. Mild multilevel degenerative changes. 3. Endotracheal tube in place. Chest X-Ray 12/09/21 08:25 IMPRESSION: 1. Status post endotracheal tube placement with its distal tip approximately 4.6 cm from the level of the mega. 2. Enteric tube courses through the esophagus below the left hemidiaphragm, its distal portion is not included in the [id number] though presumably within the stomach. 3. Bilateral low lung volumes. 4. Slight accentuation of the pulmonary vasculature. Assessment and Plan (1) Acute respiratory failure: Status: Acute (2) Alcohol abuse: Status: Acute (3) Status epilepticus: Status: Acute Plan Assessment: 46-year-old gentleman admitted with status epilepticus requiring intubation and ventilatory support on the background of alcohol abuse. Plan: Neuro: Status epilepticus, now status post multiple dose of benzodiazepines and loaded with Keppra. EEG with no seizure recurrence. Neurology service care appreciated. Continue on Keppra. Cardiac: No acute issues. Pulmonary: Intubated for airway protection with status epilepticus, continue to titrate off as tolerated. Renal: No acute issues. Endo: No acute issues. GI: No acute issues. ID: No acute issues. no evidence of sepsis, lactic acidosis from status epilepticus. Heme/Onc: No acute issues. Psych: No acute issues. Miscellaneous: No acute issues. Prophylaxis: Heparin, famotidine Diet: nothing by mouth Critical care time spent: 45 minutes
[2021-12-09 13:02] LABS: Reflex Lactate? 2 Y
[2021-12-09 13:43] LABS: VBG Base Excess 0.1 mmol/L; VBG HCO3 19 mmol/L (22-26); VBG pCO2 19 mmHg; VBG pH 7.61 (7.32-7.43); VBG pO2 100 mmHg
[2021-12-09 13:54] LABS: ~Lactic Acid-LAB USE ONLY 1.9 mmol/L (0.5-2.0)
[2021-12-09 14:11] LABS: Anion Gap 21 (12-20); Blood Urea Nitrogen 8 mg/dL (9-16); Calcium 7.5 mg/dL (8.4-10.2); Carbon Dioxide 18 mmol/L (22-29); Chloride 101 mmol/L (96-108); Creatinine Clr Calc Pharmacy 89.8; Estimated Glomerular Filt Rate > 60; Glucose Random 108 mg/dL (60-115); Sodium 137 mmol/L (135-145)
[2021-12-09] MEDS: propofoL 1,000 MG/100 ML VIAL 14.18 MG IVCONT (15:00)
[2021-12-09 15:09] LABS: Venous Blood Gas Refer to POC result
[2021-12-09] MEDS: Potassium Chloride/H20 10 MEQ/100 ML PIGGYBACK 100 MEQ IV ×4 (16:22→22:04)
[2021-12-09] MEDS: Calcium Gluconate/NaCl,Iso-Osm 2 GM/100 ML PLAST..BAG IV (16:44)
[2021-12-10] VITALS (28 sets, daily range): BP systolic 100–118; BP diastolic 56–70; PULSE 96–121; RESP 9–18; TEMP 34.6–38.5; O2SAT 91–99; BMI 27.6
--- NOTE | 2021-12-10 00:09 | PC.NURSE ---
Addendum entered by Ubaldo Vences RN 12/10/21 00:22: Skin injuries include a small scratch to left knee, and a small bruise to left hip Original Note: Assumed care about 11:00 am. Admission completed with patient's father and per record. Patient had status epilepticus after being found face down at home where he is temporarily living with his father. Per father, patient has been trying to stop drinking wine regularly in unknown amounts, and unknown last alcoholic beverage. Patient had ammonia of 162. Scleritic icterus bilaterally. has transaminitis, and MD aware. Patient noted to have INR of 1.3 on admission, and had coffeeground emesis 100 ccs per ED nurse, Magdalena, and was placed on low intermittent suction, and this was continued in ICU with zero output, so MD was notified and OGT has been clamped since late afternoon. Patient oral secretions also blood-tinged, as are inline suction secretions, and PA aware. Hgb was 13.1 on admission, labs ordered for AM re-check. Plan to hold a dose of heparin ppx per PA and date night sitter RN aware. Patient was acidotic in ED with PH 6.9, intubated in ED with #7.5 ETT, 25 cm lorena; AC settings TV 450; rate was 30 but lowered to 12 after subsequent VBG with Ph overcorrected to 7.61. Peep 5; FiO2 40%. ETCO2 was initially 16 and corrected to 34, MD aware. Patient had arrived restless and reaching for ETT and was restrained per MD at 11 am. Patient with improved compliance and calm after sedation adjustments. After having Keppra, patient's propofol and versed were stopped at 1130 and EEG was done. Patient was given 100 mcg IVP fentanyl per MD followed by fentanyl gtt started at 75 mcg/hour with good effect, and propofol titirated down to 10 mcg/kg/min over course of next 12 hours with light sedation goal. Patient has been calm, opens eyes and tracks, and almost entirely synchronous with vent, moves all extremities. Patient electrolyte abnormalites corrected with 4 x 10 MeQ KCl, 2 GM CaGlu, also thiamine and folic acid administered. discussed fluid status with MD, and given amount of IV medications administered, fluid is seen as adequate. Patient urine outputs around 50-60 cc/hour, were initially cloudy with sediment, then clear, then cloudy yellow urine, nonmalodorous, and via mackenzie cath that was placed in ED 16 Fr 10 cc balloon. skin is intact, except for right thigh lateral aspect nickel-sized lipoma and bleeding from gums. Patient is afebrile.
[2021-12-10 05:29] LABS: VBG Base Excess 2.8 mmol/L; VBG HCO3 26 mmol/L (22-26); VBG pCO2 37 mmHg; VBG pH 7.45 (7.32-7.43); VBG pO2 76 mmHg
[2021-12-10 05:38] LABS: Basophils Percent Auto 0.5 % (0-2); Eosinophils Absolute Auto 0.1 X10*3/uL (0.0-0.4); Eosinophils Percent Auto 4.7 % (0-4); Hematocrit 30.7 % (42.0-52.0); Hemoglobin 10.4 g/dl (14.0-18.0); Imm Gran Abs Auto 0.01 X10*3/uL (0.00-0.03); Imm Gran Pct Auto 0.5 % (0.0-0.4); Lymphocytes Absolute Auto 0.5 X10*3/uL (1.2-4.9); Lymphocytes Percent Auto 26.4 % (20-40); MANUAL DIFF FLAG SCAN; Mean Corpuscular HGB Conc 33.9 g/dl (31.0-36.0); Mean Corpuscular Volume 103.4 fL (80.0-98.0); Mean Platelet Volume 11.5 fL (9.4-12.4); Monocytes Absolute Auto 0.2 X10*3/uL (0.1-1.2); Monocytes Percent Auto 12.4 % (2-11); Neutrophils Absolute Auto 1.1 x10*3/uL (2.0-8.3); Neutrophils Percent Auto 55.5 % (45-73); Red Blood Count 2.97 X10*6/uL (4.60-5.80); Red Cell Distribution Width 16.6 % (11.0-16.0); SCAN SMEAR FLAG 1
[2021-12-10 05:39] LABS: Platelet Count 21 X10*3/uL (160-400); White Blood Count 1.9 X10*3/uL (4.8-10.8)
[2021-12-10 05:45] LABS: Ammonia 40 umol/L (13-55)
[2021-12-10 05:58] LABS: Alanine Aminotransferase 84 U/L (0-40); Alkaline Phosphatase 98 U/L (39-117); Anion Gap 15 (12-20); Aspartate Amino Transferase 207 U/L (5-37); Bilirubin Total 5.5 mg/dL (0.0-1.0); Blood Urea Nitrogen 8 mg/dL (9-16); Calcium 8.1 mg/dL (8.4-10.2); Carbon Dioxide 26 mmol/L (22-29); Chloride 103 mmol/L (96-108); Creatinine Clr Calc Pharmacy 87.2; Estimated Glomerular Filt Rate > 60; Glucose Random 79 mg/dL (60-115); Magnesium 1.8 mg/dL (1.6-2.6); Phosphorus 2.2 mg/dL (2.7-4.5); Potassium 3.3 mmol/L (3.3-5.1); Sodium 141 mmol/L (135-145); Total Protein 6.5 g/dL (6.5-8.0)
[2021-12-10 06:03] LABS: SLIDE REVIEW VERIFIED
[2021-12-10] MEDS: Potassium Phosphate/NS 15 MMOL/250 ML PLAST..BAG 62.5 MMOL IV (06:38)
[2021-12-10 06:47] LABS: VBG Base Excess -24.2 mmol/L; VBG HCO3 6 mmol/L (22-26); VBG pCO2 27 mmHg; VBG pH 6.96 (7.32-7.43); VBG pO2 143 mmHg
[2021-12-10 06:50] LABS: Glucose, Whole Blood 111 mg/dL (60-115)
[2021-12-10 06:56] LABS: Venous Blood Gas Refer to POC result
[2021-12-10] MEDS: Chlorhexidine Gluc Oral Rinse 15 ML MOUTHWASH BUCCAL (08:47)
[2021-12-10] MEDS: propofoL 1,000 MG/100 ML VIAL 9.46 MG IVCONT (08:47)
[2021-12-10] MEDS: fentaNYL citrate/NS 1,000 MCG/100 ML PLAST..BAG 7.5 MCG IVCONT (08:47)
[2021-12-10] MEDS: Famotidine/PF 20 MG/2 ML VIAL IVPUSH (08:51)
[2021-12-10] MEDS: levETIRAcetam in NaCl (iso-os) 1,000 MG/100 ML PIGGYBACK 400 MG IV (09:40)
[2021-12-10] MEDS: Folic Acid 1 MG in 0.9 % Sodium Chloride 50 ML 100.4 MG IV (10:41)
--- NOTE | 2021-12-10 12:06 | P.PNCC_ITS ---
Subjective Subjective Date of Service: 12/10/21 Interval History: 46-year-old gentleman with underlying history of alcohol abuse admitted on 12/09/2021 with alteration of mental status and status epilepticus requiring intubation and ventilatory support. CT head negative for acute pathology. Patient has been started on Keppra. EEG with no seizure recurrence. Patient has been evaluated by neurology service and admitted to intensive care unit. No events overnight. Extubated uneventfully this a.m.. Critical Care Time (minutes): 30 Physical Exam Vital Signs: Vital Signs: Last Vital Signs Temp 99.3 F 12/10/21 11:00 Pulse 105 H 12/10/21 11:00 Resp 11 L 12/10/21 11:00 BP 108/59 L 12/10/21 11:00 Pulse Ox 96 12/10/21 11:00 O2 Del Method 12/10/21 11:00 O2 Flow Rate 2 12/10/21 11:00 FiO2 30 12/10/21 09:00 BMI result Body Mass Index 27.6 Const: General: no acute distress and lethargic ( Arousable, answers appropriately) Orientation/consciousness: lethargic ( Arousable, answers appropriately) Eyes: Sclerae: sclerae normal EOM: EOMs intact bilaterally Neck: Neck: Yes no lymphadenopathy, Yes trachea midline and Yes supple Resp: Effort & Inspection: normal respiratory effort and no respiratory di stress Auscultation: clear to auscultation bilaterally Cardio: Rate: tachycardic Rhythm: regular rhythm Heart sounds: no gallops, no murmurs and no rubs GI: Palpation (GI): Soft to palpation and Other GI palpation findings present ( Nontender) Auscultation: normal bowel sounds Extrem: General: Yes no pedal edema, No clubbing and No cyanosis Objective Data Labs CBC & Chem 7: 12/10/21 05:22 12/10/21 05:22 Labs: Laboratory Results - last 24 hr 12/09/21 12/09/21 12/09/21 06:35 06:38 13:35 WBC RBC Hgb Hct MCV MCH MCHC RDW Plt Count MPV Immature Gran % (Auto) Neut % (Auto) Lymph % (Auto) [place] % (Auto) Eos % (Auto) Baso % (Auto) Lymph # (Auto) [place] # (Auto) Eos # (Auto) Baso # (Auto) Abs Immat Gran (auto) Absolute Neuts (auto) Absolute Nucleated RBC Nucleated RBC % (auto) Smear Tech's Comments Smear Path Review VBG pH 6.96 L* 7.61 H* VBG pCO2 27 19 VBG pO2 143 100 VBG HCO3 6 L 19 L VBG O2 Saturation 96.0 99.0 VBG Base Excess -24.2 0.1 Sodium Potassium Chloride Carbon Dioxide Anion Gap BUN Creatinine Estim Creat Clear Calc Estimated GFR POC Glucose 111 Random Glucose Lactic Acid F/U @ 4Hr Calcium Phosphorus Magnesium Total Bilirubin AST ALT Alkaline Phosphatase Ammonia Total Protein Albumin 12/09/21 12/09/21 12/10/21 13:36 13:36 05:21 WBC RBC Hgb Hct MCV MCH MCHC RDW Plt Count MPV Immature Gran % (Auto) Neut % (Auto) Lymph % (Auto) [place] % (Auto) Eos % (Auto) Baso % (Auto) Lymph # (Auto) [place] # (Auto) Eos # (Auto) Baso # (Auto) Abs Immat Gran (auto) Absolute Neuts (auto) Absolute Nucleated RBC Nucleated RBC % (auto) Smear Tech's Comments Smear Path Review VBG pH 7.45 H VBG pCO2 37 VBG pO2 76 VBG HCO3 26 VBG O2 Saturation 94.0 VBG Base Excess 2.8 Sodium 137 Potassium 3.0 L Chloride 101 Carbon Dioxide 18 L Anion Gap 21 H BUN 8 L Creatinine 0.94 Estim Creat Clear Calc 89.8 Estimated GFR > 60 POC Glucose Random Glucose 108 Lactic Acid F/U @ 4Hr 1.9 Calcium 7.5 L D Phosphorus Magnesium Total Bilirubin AST ALT Alkaline Phosphatase Ammonia Total Protein Albumin 12/10/21 12/10/21 12/10/21 05:22 05:22 05:22 WBC 1.9 L RBC 2.97 L D Hgb 10.4 L D Hct 30.7 L D MCV 103.4 H MCH 35.0 H MCHC 33.9 RDW 16.6 H Plt Count 21 L D MPV 11.5 Immature Gran % (Auto) 0.5 H Neut % (Auto) 55.5 Lymph % (Auto) 26.4 [place] % (Auto) 12.4 H Eos % (Auto) 4.7 H Baso % (Auto) 0.5 Lymph # (Auto) 0.5 L [place] # (Auto) 0.2 Eos # (Auto) 0.1 Baso # (Auto) 0.0 Abs Immat Gran (auto) 0.01 Absolute Neuts (auto) 1.1 L Absolute Nucleated RBC 0.000 Nucleated RBC % (auto) 0.0 Smear Tech's Comments VERIFIED Smear Path Review VBG pH VBG pCO2 VBG pO2 VBG HCO3 VBG O2 Saturation VBG Base Excess Sodium 141 Potassium 3.3 Chloride 103 Carbon Dioxide 26 Anion Gap 15 BUN 8 L Creatinine 1.05 Estim Creat Clear Calc 87.2 Estimated GFR > 60 POC Glucose Random Glucose 79 Lactic Acid F/U @ 4Hr Calcium 8.1 L D Phosphorus 2.2 L Magnesium 1.8 Total Bilirubin 5.5 H AST 207 H ALT 84 H Alkaline Phosphatase 98 D Ammonia 40 Total Protein 6.5 D Albumin 3.0 L D Microbiology Microbiology Results: Microbiology 12/09/21 07:51 Blood - Venous Blood Culture - Preliminary No growth after 24 hours. 12/09/21 06:37 Blood - Venous Blood Culture - Preliminary No growth after 24 hours. Progress Note: A&P Assessment and plan (1) Status epilepticus: Status: Acute (2) Alcohol abuse: Status: Acute Plan Assessment: 46-year-old gentleman admitted with status epilepticus requiring intubation and ventilatory support on the background of alcohol abuse. Plan: Neuro: Status epilepticus, now status post multiple dose of benzodiazepines and loaded with Keppra. EEG with no seizure recurrence. Neurology service care appreciated. Continue on Keppra. Cardiac: No acute issues. Pulmonary: Intubated for airway protection with status epilepticus, extubated uneventfully this a.m.. Renal: No acute issues. Endo: No acute issues. GI: No acute issues. ID: No acute issues. no evidence of sepsis, lactic acidosis from status epilepticus. Heme/Onc: No acute issues. Psych: No acute issues. Miscellaneous: No acute issues. Prophylaxis: Heparin Diet: Pending bedside swallow evaluation Critical care time spent: 30 minutes Quality Stroke Does the patient have a stroke diagnosis?: No VTE Prior VTE?: No VTE Risk Level:: Medical - moderate - high VTE Device Contraindication: N/A - Device Ordered VTE Drug Contraindication: N/A - Med Ordered
--- NOTE | 2021-12-10 14:47 | MHC.CM.PN ---
Call made to [place] (father). Reports patient is up from [place]. Does not know address patient was at in [place]. Patient currently staying with father. No insurance. No HCP. PCP Dr. Hong If services are needed post-acute stay it may be challenging d/t lack of health insurance. Will make referral to financial services.
[2021-12-11] VITALS (13 sets, daily range): BP systolic 100–123; BP diastolic 58–78; PULSE 96–118; RESP 13–24; TEMP 36.8–37.8; O2SAT 91–99; BMI 27.7
[2021-12-11] MEDS: levETIRAcetam in NaCl (iso-os) 1,000 MG/100 ML PIGGYBACK 400 MG IV (01:26)
[2021-12-11] MEDS: Heparin Sodium,Porcine 5,000 UNIT/ML VIAL 5000 UNIT SUBCUT (01:32)
[2021-12-11] MEDS: LORazepam 2 MG/ML VIAL 1 MG IVPUSH (01:58)
--- NOTE | 2021-12-11 03:46 | PC.NURSE ---
ASSUMED CARE OF PT AT 1900. PT WAS DROWSY BUT RESPONSIVE AND FOLLOWING COMMANDS. SPEECH IS VERY SOFT AND HOARSE. HE IS VAGUE TO SITUATION AND DOESN'T REMEMBER WHAT HAPPENED AND WHY HE IS IN THE HOSPITAL. WANTED TO LEAVE AMA. JELANI ADMIN ASST AT BEDSIDE AND SPOKE TO PT. HE DECIDED TO STAY. SWALLOW EVAL DONE AND PT PASSED. TAKING AMSOUD MOLLY AND JELLO PO WITHOUT DIFFICULTY. TRIED TO PULL OUT DONALDSON AND THUS, DONALDSON WAS REMOVED BY THIS RN. PT LATER TRIED TO USE URINOL BUT UNSUCCESSFUL AND THEN WAS INCONTINENT OF MODERATE AMOUNT OF URINE. BEDBATH GIVEN. MOUTH CARE DONE SEVERAL TIMES. BLOOD NOTED IN MOUTH. PT ABLE TO GARLE WITH MOUTHWASH. ATIVAN 1 MG IV GIVEN ORDERED X1 FOR INCREASED RESTLESSNESS, PULLING ON IV, MONITOR WIRES, BP CUFF ETC AND TRYING TO CLIMB OUT OF BED. PT IS MOSTLY SLEEPING AT THIS TIME.
[2021-12-11 05:28] LABS: VBG Base Excess 6.5 mmol/L; VBG HCO3 28 mmol/L (22-26); VBG pCO2 32 mmHg; VBG pH 7.55 (7.32-7.43); VBG pO2 52 mmHg
[2021-12-11 05:29] LABS: Venous Blood Gas Refer to POC result
[2021-12-11 05:48] LABS: Basophils Percent Auto 0.6 % (0-2); Eosinophils Absolute Auto 0.1 X10*3/uL (0.0-0.4); Eosinophils Percent Auto 4.6 % (0-4); Hematocrit 30.3 % (42.0-52.0); Hemoglobin 10.2 g/dl (14.0-18.0); Imm Gran Abs Auto 0.03 X10*3/uL (0.00-0.03); Imm Gran Pct Auto 1.7 % (0.0-0.4); Lymphocytes Absolute Auto 0.5 X10*3/uL (1.2-4.9); Lymphocytes Percent Auto 30.3 % (20-40); MANUAL DIFF FLAG SCAN; Mean Corpuscular HGB Conc 33.7 g/dl (31.0-36.0); Mean Corpuscular Hemoglobin 34.7 pg (27.0-33.0); Mean Corpuscular Volume 103.1 fL (80.0-98.0); Mean Platelet Volume 11.5 fL (9.4-12.4); Monocytes Absolute Auto 0.3 X10*3/uL (0.1-1.2); Monocytes Percent Auto 15.4 % (2-11); Neutrophils Absolute Auto 0.8 x10*3/uL (2.0-8.3); Neutrophils Percent Auto 47.4 % (45-73); Red Blood Count 2.94 X10*6/uL (4.60-5.80); Red Cell Distribution Width 16.3 % (11.0-16.0); SCAN SMEAR FLAG 1
[2021-12-11 06:01] LABS: Platelet Count 25 X10*3/uL (160-400); White Blood Count 1.8 X10*3/uL (4.8-10.8)
[2021-12-11 06:04] LABS: Anion Gap 12 (12-20); Blood Urea Nitrogen 6 mg/dL (9-16); Carbon Dioxide 28 mmol/L (22-29); Chloride 104 mmol/L (96-108); Creatinine Clr Calc Pharmacy 111.6; Estimated Glomerular Filt Rate > 60; Glucose Random 98 mg/dL (60-115); Magnesium 1.3 mg/dL (1.6-2.6); Phosphorus 1.3 mg/dL (2.7-4.5); Potassium 2.9 mmol/L (3.3-5.1); Sodium 141 mmol/L (135-145)
[2021-12-11 06:08] LABS: SLIDE REVIEW VERIFIED
[2021-12-11] MEDS: Magnesium Sulfate/H2O 2 GM/50 ML PIGGYBACK IV (06:35)
[2021-12-11] MEDS: Potassium Phosphate/NS 15 MMOL/250 ML PLAST..BAG 62.5 MMOL IV (08:15)
[2021-12-11] MEDS: levETIRAcetam 1,000 MG TABLET 1000 MG PO ×2 (08:16→20:10)
--- NOTE | 2021-12-11 10:17 | PC.NURSE ---
Assumed care at 0700 - Patient laying in bed with eyes closed, drowsy, arousable to name, A&O x3, confused on situation. Patient states some say I had a stroke, some say I had a seizure . Patient bathed and OOB to recliner with 1 assist due to unsteadiness. Patient pulled PRN angio to left lower arm out - when asked why patient states I'm leaving . This RN and Dr Esposito at bedside explaining risks of leaving. Per MD, patient cannot make own medical decisions at thisn time and is not allowed to leave AMA. High fall risk precautions in place, tele sitter at bedside.
--- NOTE | 2021-12-11 10:56 | PM.CCPN ---
Subjective Subjective Date of Service: 12/11/21 Interval History: 46-year-old gentleman with underlying history of alcohol abuse admitted on 12/09/2021 with alteration of mental status and status epilepticus requiring intubation and ventilatory support. CT head negative for acute pathology. Patient has been started on Keppra. EEG with no seizure recurrence. Patient has been evaluated by neurology service and admitted to intensive care unit. No seizure recurrence. Extubated 12/10/2021 No events overnight. Critical Care Time (minutes): 0 Physical Exam Vital Signs: Vital Signs: Last Vital Signs Temp 98.5 F 12/11/21 08:00 Pulse 111 H 12/11/21 08:00 Resp 14 12/11/21 08:00 BP 114/74 12/11/21 08:00 Pulse Ox 95 12/11/21 08:00 O2 Del Method 12/11/21 08:00 O2 Flow Rate 2 12/11/21 08:00 FiO2 30 12/10/21 09:00 BMI result Body Mass Index 27.7 Const: General: no acute distress, alert and awake Eyes: Sclerae: sclerae normal EOM: EOMs intact bilaterally Neck: Neck: Yes no lymphadenopathy, Yes trachea midline and Yes supple Resp: Effort & Inspection: normal respiratory effort and no respiratory distress Auscultation: clear to auscultation bilaterally Cardio: Rate: tachycardic Rhythm: regular rhythm Heart sounds: no gallops, no murmurs and no rubs GI: Palpation (GI): Soft to palpation and Other GI palpation findings present ( Nontender) Auscultation: normal bowel sounds Extrem: General: Yes no pedal edema, No clubbing and No cyanosis Objective Data Labs CBC & Chem 7: 12/11/21 05:21 12/11/21 05:21 Labs: Laboratory Results - last 24 hr 12/10/21 12/11/21 12/11/21 05:22 05:20 05:21 WBC 1.8 L RBC 2.94 L Hgb 10.2 L Hct 30.3 L MCV 103.1 H MCH 34.7 H MCHC 33.7 RDW 16.3 H Plt Count 25 L MPV 11.5 Immature Gran % (Auto) 1.7 H Neut % (Auto) 47.4 Lymph % (Auto) 30.3 [place] % (Auto) 15.4 H Eos % (Auto) 4.6 H Baso % (Auto) 0.6 Lymph # (Auto) 0.5 L [place] # (Auto) 0.3 Eos # (Auto) 0.1 Baso # (Auto) 0.0 Abs Immat Gran (auto) 0.03 Absolute Neuts (auto) 0.8 L Absolute Nucleated RBC 0.000 Nucleated RBC % (auto) 0.0 Smear Tech's Comments VERIFIED Smear Path Review VBG pH 7.55 H VBG pCO2 32 VBG pO2 52 VBG HCO3 28 H VBG O2 Saturation 86.0 VBG Base Excess 6.5 Sodium Potassium Chloride Carbon Dioxide Anion Gap BUN Creatinine Estim Creat Clear Calc Estimated GFR Random Glucose Calcium Phosphorus Magnesium Albumin 12/11/21 05:21 WBC RBC Hgb Hct MCV MCH MCHC RDW Plt Count MPV Immature Gran % (Auto) Neut % (Auto) Lymph % (Auto) [place] % (Auto) Eos % (Auto) Baso % (Auto) Lymph # (Auto) [place] # (Auto) Eos # (Auto) Baso # (Auto) Abs Immat Gran (auto) Absolute Neuts (auto) Absolute Nucleated RBC Nucleated RBC % (auto) Smear Tech's Comments Smear Path Review VBG pH VBG pCO2 VBG pO2 VBG HCO3 VBG O2 Saturation VBG Base Excess Sodium 141 Potassium 2.9 L Chloride 104 Carbon Dioxide 28 Anion Gap 12 BUN 6 L Creatinine 0.82 Estim Creat Clear Calc 111.6 Estimated GFR > 60 Random Glucose 98 Calcium 8.0 L Phosphorus 1.3 L Magnesium 1.3 L* Albumin 3.0 L Microbiology Microbiology Results: Microbiology 12/09/21 07:51 Blood - Venous Blood Culture - Preliminary No growth after 48 hours. 12/09/21 06:37 Blood - Venous Blood Culture - Preliminary Prelim: GPR Gram Stain only Progress Note: A&P Assessment and plan (1) Alcohol abuse: Status: Acute (2) Acute respiratory failure: Status: Acute (3) Status epilepticus: Status: Acute Plan Assessment: 46-year-old gentleman admitted with status epilepticus requiring intubation and ventilatory support on the background of alcohol abuse. Plan: Neuro: Status epilepticus, now status post multiple dose of benzodiazepines and loaded with Keppra. EEG with no seizure recurrence. Neurology service care appreciated. Continue on Keppra. Alcohol abuse monitor for withdrawal symptoms. Cardiac: No acute issues. Pulmonary: Intubated for airway protection with status epilepticus, extubated 12/10/2021. Renal: No acute issues. Endo: No acute issues. GI: No acute issues. ID: No acute issues. no evidence of sepsis, lactic acidosis from status epilepticus. Heme/Onc: No acute issues. Psych: No acute issues. Miscellaneous: No acute issues. Prophylaxis: Heparin Diet: regular Quality Stroke Does the patient have a stroke diagnosis?: No VTE Prior VTE?: No VTE Risk Level:: Medical - moderate - high VTE Device Contraindication: N/A - Device Ordered VTE Drug Contraindication: N/A - Med Ordered
[2021-12-11] MEDS: Folic Acid 1 MG in 0.9 % Sodium Chloride 50 ML 100.4 MG IV (12:06)
--- NOTE | 2021-12-11 12:22 | PM.EVENT ---
Event Note Date of Service: 12/11/21 Event Note: Chart reviewed patient examined. Plan as outlined by Dr. Bernard
[2021-12-12 03:21] VITALS: BP 107/63; PULSE 56; RESP 18; TEMP 37.2; O2SAT 94
[2021-12-12 05:54] VITALS: BMI 27.6
[2021-12-12 06:19] LABS: Eosinophils Absolute Auto 0.1 X10*3/uL (0.0-0.4); Eosinophils Percent Auto 5.5 % (0-4); Hematocrit 26.5 % (42.0-52.0); Hemoglobin 9.4 g/dl (14.0-18.0); Imm Gran Abs Auto 0.01 X10*3/uL (0.00-0.03); Imm Gran Pct Auto 0.9 % (0.0-0.4); Lymphocytes Absolute Auto 0.4 X10*3/uL (1.2-4.9); Lymphocytes Percent Auto 35.8 % (20-40); MANUAL DIFF FLAG SCAN; Mean Corpuscular HGB Conc 35.5 g/dl (31.0-36.0); Mean Corpuscular Hemoglobin 35.5 pg (27.0-33.0); Mean Platelet Volume 11.5 fL (9.4-12.4); Monocytes Absolute Auto 0.2 X10*3/uL (0.1-1.2); Monocytes Percent Auto 18.3 % (2-11); Neutrophils Absolute Auto 0.4 x10*3/uL (2.0-8.3); Neutrophils Percent Auto 39.5 % (45-73); Platelet Count 24 X10*3/uL (160-400); Red Blood Count 2.65 X10*6/uL (4.60-5.80); SCAN SMEAR FLAG 1; White Blood Count 1.1 X10*3/uL (4.8-10.8)
[2021-12-12 06:38] LABS: SLIDE REVIEW VERIFIED
[2021-12-12 06:42] LABS: Albumin Level 2.7 g/dL (3.5-5.0); Anion Gap 11 (12-20); Blood Urea Nitrogen 3 mg/dL (9-16); Calcium 7.9 mg/dL (8.4-10.2); Carbon Dioxide 27 mmol/L (22-29); Chloride 99 mmol/L (96-108); Creatinine Clr Calc Pharmacy 128.9; Estimated Glomerular Filt Rate > 60; Glucose Random 121 mg/dL (60-115); Magnesium 0.9 mg/dL (1.6-2.6); Phosphorus 1.5 mg/dL (2.7-4.5); Potassium 2.5 mmol/L (3.3-5.1); Sodium 134 mmol/L (135-145)
[2021-12-12] MEDS: Magnesium Sulfate/H2O 2 GM/50 ML PIGGYBACK IV (07:27)
[2021-12-12] MEDS: levETIRAcetam 1,000 MG TABLET 1000 MG PO ×2 (07:27→20:39)
[2021-12-12] MEDS: Potassium Chloride Packet 20 MEQ PACKET 40 MEQ PO ×2 (07:41→10:24)
[2021-12-12 08:00] VITALS: BP 107/67; PULSE 104; RESP 20; TEMP 37.2; O2SAT 95
[2021-12-12] MEDS: Sodium,Potassium Phosphates POWD.PACK 1 PACKET PO ×2 (09:17→20:39)
[2021-12-12] MEDS: Magnesium Oxide 400 MG TABLET PO ×2 (09:17→17:16)
[2021-12-12] MEDS: Potassium Phosphate/NS 15 MMOL/250 ML PLAST..BAG 62.5 MMOL IV ×2 (09:26→13:42)
--- NOTE | 2021-12-12 10:51 | P.PNIM_ITS ---
Subjective Subjective Date of Service: 12/12/21 Interval History: more alert today. CIWA negative thus far Review of Systems denies chest pain Denies shortness of breath Denies nausea vomiting diarrhea [place]as Physical Exam Vital Signs: Vital Signs: Last Vital Signs Temp 99.0 F 12/12/21 08:00 Pulse 104 H 12/12/21 08:00 Resp 20 12/12/21 08:00 BP 107/67 12/12/21 08:00 Pulse Ox 95 12/12/21 08:00 O2 Del Method 12/12/21 08:00 O2 Flow Rate 2 12/11/21 12:00 FiO2 30 12/10/21 09:00 BMI result Body Mass Index 27.6 Const: Other: awake alert oriented x3 no acute distress Resp: Other: clear to auscultation bilaterally no rales rhonchi or wheezes Cardio: Other: no S4; positive S1-S2; no S3 murmurs rubs gallops Neuro: Other: cranial nerves 2-12 grossly intact as tested. Motor is 5/5 all extremities. Sensation is intact Extrem: Other: no edema bilaterally Objective Data Active Medications Heparin Sodium (Porcine) (Heparin Sodium,Porcine 5,000 Unit/Ml Vial) 5,000 unit SUBCUT Q8H [facility] Last Admin: 12/12/21 07:45 Dose: Not Given Documented By: DILAN Non-Admin Reason: Low platelets Potassium Phosphate (Kphos) 15 mmol in 250 mls @ 62.5 mls/hr IV Q4H [facility] Stop: 12/12/21 17:59 Last Admin: 12/12/21 09:26 Dose: 62.5 mls/hr Documented By: DILAN Folic Acid 1 mg/ Sodium (Chloride) 50.2 mls @ 100.4 mls/hr IV DAILY@1800 [facility] Stop: 12/12/21 18:29 Levetiracetam (Levetiracetam 1,000 Mg Tablet) 1,000 mg PO BID [facility] Last Admin: 12/12/21 07:27 Dose: 1,000 mg Documented By: DILAN Lorazepam (Lorazepam 2 Mg/Ml Vial) 1 mg IVPUSH ONCE PRN PRN Reason: anxiety Last Admin: 12/11/21 01:58 Dose: 1 mg Documented By: JENNIFER Magnesium Oxide (Magnesium Oxide 400 Mg Tablet) [facility] Last Admin: 12/12/21 09:17 Dose: 400 mg Documented By: DILAN Pharmacy Consult (Consult Rx Etoh Phenob Po Dose) 1 each MISCELLANE ONCE PRN; Protocol PRN Reason: Consult order Potassium Phos/Sodium Phos (Sodium,Potassium Phosphates Powd.Pack) 1 packet PO BID [facility] Stop: 12/13/21 21:01 Last Admin: 12/12/21 09:17 Dose: 1 packet Documented By: DILAN Labs CBC & Chem 7: 12/12/21 05:47 12/12/21 05:47 Labs: Laboratory Results - last 24 hr 12/12/21 12/12/21 05:47 05:47 MCV 100.0 H MCH 35.5 H MCHC 35.5 RDW 16.0 Plt Count 24 L MPV 11.5 Immature Gran % (Auto) 0.9 H Neut % (Auto) 39.5 L Lymph % (Auto) 35.8 [place] % (Auto) 18.3 H Eos % (Auto) 5.5 H Baso % (Auto) 0.0 Lymph # (Auto) 0.4 L [place] # (Auto) 0.2 Eos # (Auto) 0.1 Baso # (Auto) 0.0 Abs Immat Gran (auto) 0.01 Absolute Neuts (auto) 0.4 L Absolute Nucleated RBC 0.000 Nucleated RBC % (auto) 0.0 Smear Tech's Comments VERIFIED Anion Gap 11 L Estim Creat Clear Calc 128.9 Estimated GFR > 60 Random Glucose 121 H Calcium 7.9 L Phosphorus 1.5 L Magnesium 0.9 L* Albumin 2.7 L Microbiology Microbiology Results: Microbiology 12/09/21 06:37 Blood Culture - Final Blood - Venous Corynebacterium species 12/11/21 05:21 Blood Culture - Preliminary Blood - Venous No growth after 24 hours. 12/11/21 05:20 Blood Culture - Preliminary Blood - Venous No growth after 24 hours. 12/09/21 07:51 Blood Culture - Preliminary Blood - Venous No growth after 48 hours. Assessment and Plan (1) Alcohol abuse: Status: Acute (2) Status epilepticus: Status: Acute Plan 46-year-old male with known history of alcohol abuse presents after having a seizure at father's house. Was extubated overnight and Transferred to telemetry. CIWA remains negative 1. Alcohol abuse - continue to observe on CIWA scale - care consult in a.m. 2. Status epilepticus - seizure precautions - Keppra 1000 mg twice a day 3. hypokalemia/hypomagnesemia/ hypophosphatemia - replete IV and orally - follow renals and divalents heparin full code will require ongoing hospitalization for repletion of above diet phalanx and follow on CIWA scale Quality Stroke Does the patient have a stroke diagnosis?: No VTE Prior VTE?: No VTE Risk Level:: Medical - moderate - high VTE Device Contraindication: N/A - Device Ordered VTE Drug Contraindication: N/A - Med Ordered
[2021-12-12 11:27] VITALS: BP 103/63; PULSE 100; RESP 20; TEMP 36.4; O2SAT 92
[2021-12-12 15:14] VITALS: BP 116/67; PULSE 103; RESP 14; TEMP 37.8; O2SAT 96
[2021-12-12] MEDS: Folic Acid 1 MG in 0.9 % Sodium Chloride 50 ML 100.4 MG IV (18:11)
[2021-12-12 20:00] VITALS: BP 106/60; PULSE 91; RESP 18; TEMP 37.7; O2SAT 96
[2021-12-12 23:21] VITALS: BP 118/74; PULSE 96; RESP 18; TEMP 38.3; O2SAT 97
[2021-12-13 04:00] VITALS: BP 96/60; PULSE 88; RESP 18; TEMP 37.4; O2SAT 97
[2021-12-13 06:00] VITALS: BMI 27.6
[2021-12-13 07:18] LABS: Eosinophils Absolute Auto 0.1 X10*3/uL (0.0-0.4); Hematocrit 29.1 % (42.0-52.0); Hemoglobin 9.9 g/dl (14.0-18.0); Imm Gran Abs Auto 0.01 X10*3/uL (0.00-0.03); Imm Gran Pct Auto 0.8 % (0.0-0.4); Lymphocytes Absolute Auto 0.4 X10*3/uL (1.2-4.9); Lymphocytes Percent Auto 33.3 % (20-40); MANUAL DIFF FLAG SCAN; Mean Corpuscular Hemoglobin 34.5 pg (27.0-33.0); Mean Corpuscular Volume 101.4 fL (80.0-98.0); Mean Platelet Volume 11.1 fL (9.4-12.4); Monocytes Absolute Auto 0.3 X10*3/uL (0.1-1.2); Monocytes Percent Auto 24.2 % (2-11); Neutrophils Absolute Auto 0.4 x10*3/uL (2.0-8.3); Neutrophils Percent Auto 36.7 % (45-73); Red Blood Count 2.87 X10*6/uL (4.60-5.80); Red Cell Distribution Width 16.3 % (11.0-16.0); SCAN SMEAR FLAG 1
[2021-12-13 07:19] LABS: Platelet Count 29 X10*3/uL (160-400); White Blood Count 1.2 X10*3/uL (4.8-10.8)
[2021-12-13 07:51] LABS: Alanine Aminotransferase 52 U/L (0-40); Albumin Level 2.7 g/dL (3.5-5.0); Alkaline Phosphatase 83 U/L (39-117); Anion Gap 10 (12-20); Aspartate Amino Transferase 102 U/L (5-37); Bilirubin Total 5.2 mg/dL (0.0-1.0); Blood Urea Nitrogen 3 mg/dL (9-16); Carbon Dioxide 25 mmol/L (22-29); Chloride 103 mmol/L (96-108); Creatinine Clr Calc Pharmacy 138.8; Estimated Glomerular Filt Rate > 60; Glucose Fasting 115 mg/dL (60-99); Phosphorus 2.6 mg/dL (2.7-4.5); Potassium 2.8 mmol/L (3.3-5.1); Sodium 135 mmol/L (135-145); Total Protein 5.8 g/dL (6.5-8.0)
[2021-12-13 08:00] VITALS: BP 119/72; PULSE 99; RESP 20; TEMP 37.3; O2SAT 95
[2021-12-13] MEDS: Sodium,Potassium Phosphates POWD.PACK 1 PACKET PO (08:02)
[2021-12-13] MEDS: levETIRAcetam 1,000 MG TABLET 1000 MG PO (08:02)
[2021-12-13] MEDS: Magnesium Oxide 400 MG TABLET PO (08:02)
[2021-12-13] MEDS: Magnesium Sulfate/H2O 2 GM/50 ML PIGGYBACK IV (08:02)
--- NOTE | 2021-12-13 08:34 | MHC.CM.PN ---
As of 12/10 patient has Superbly.
[2021-12-13 08:38] LABS: SLIDE REVIEW VERIFIED
--- NOTE | 2021-12-13 11:45 | MHC.RECOVRN ---
Met with pt in 471 to discuss alcohol use and recovery supports. Pt in bed, awake, alert, easily engaged in conversation. Pt reports alcohol use, 1 bottle wine daily x 1 month. Pt reports stress related to personal company as well as break up with s/o precipitated recurrence. Prior to that, pt reports drinking alcohol 1-2 times monthly. Pt reports hx of alcohol use, including necessity for court ordered breathalyzer 4x daily x 2.5 years years ago. Pt reports hospitalization is a warning and will be able to abstain from alcohol. Pt difficult to engage in conversation regarding alcohol use. Pt emphasizes many times that hospitalist has informed pt that medications for withdrawal have not been necessary. Pt reports having 2 seizures in the past, neither of which pt believe to be related to alcohol use. Pt briefly mentioned intention to go to a one month [facility] inpatient program, however, pt declines referrals from [facility]. Discussed other recovery supports and resources, pt declines all at this time. Pt provided with t/w contact information and encouraged to reach out if needed. Discussed with Cherelle Garcia APRN.
[2021-12-13 12:00] VITALS: BP 110/67; PULSE 95; RESP 20; TEMP 37.4; O2SAT 97
--- NOTE | 2021-12-13 12:59 | MHC.CM.PN ---
Addendum entered by Eloisa Rolon 12/13/21 16:08: The patient has been discharged with community resource information provided by the Recovery team. Patient arranged for transportation home. Original Note: MALE 46 DX ETOH W/D LOS R/T WITHDRAWAL. RECOVERY TEAM MET WITH PATIENT 12/13/21.
--- NOTE | 2021-12-13 15:30 | P.DS_ITS ---
DS: Providers Provider Date of Service: 12/13/21 Date of admission: 12/09/21 08:55 Date of discharge: 12/13/21 Primary care physician: Unknown Physician Consults: 12/13/21 07:46 Addiction Medicine Routine Consulting Provider: Cherelle Garcia Reason for consultation: etohwithdraw Has provider been notified: No DS: Diagnosis Discharge Diagnosis (1) Alcohol abuse: Status: Acute (2) Status epilepticus: Status: Acute DS: Summary Hospital Course Hospital Course: 46-year-old male with known history of alcohol abuse brought to emergency room by EMS after father found him seizing on the floor. Refractory seizures required intubation and medication; overnight in ICU patient did well was extubated in the a.m.. Throughout hospitalization continued to defend the fact that the seizures and intubation were not related to alcohol use. The day of discharge patient alert thinking clearly; advice to continue his hospitalization to docum ent repletion of magnesium phosphorus and potassium. Patient seen by care team; will consider their advice. Patient decided he did not wish to stay any longer so signed out AMA Time Spent with Patient Time attestation: Total time spent providing and/or coordinating discharge services: Discharge coordination time: Greater than 30 minutes Quality: Safe Use of Opioids Does Pt have an Active Cancer Diagnosis on the Problem List?: No Quality: Stroke Does the patient have a stroke diagnosis?: No Physical Exam Vital Signs: Vital Signs: Last Vital Signs Temp 99.4 F 12/13/21 12:00 Pulse 95 12/13/21 12:00 Resp 20 12/13/21 12:00 BP 110/67 12/13/21 12:00 Pulse Ox 97 12/13/21 12:00 O2 Del Method 12/13/21 12:00 O2 Flow Rate 2 12/11/21 12:00 FiO2 30 12/10/21 09:00 BMI result Body Mass Index 27.6 DS: Data Data Completed and Pending Labs on day of discharge: Laboratory Results - last 24 hr 12/13/21 12/13/21 06:52 06:52 WBC 1.2 L RBC 2.87 L Hgb 9.9 L Hct 29.1 L MCV 101.4 H MCH 34.5 H MCHC 34.0 RDW 16.3 H Plt Count 29 L MPV 11.1 Immature Gran % (Auto) 0.8 H Neut % (Auto) 36.7 L Lymph % (Auto) 33.3 [place] % (Auto) 24.2 H Eos % (Auto) 5.0 H Baso % (Auto) 0.0 Lymph # (Auto) 0.[address] [place] [place] # (Auto) 0.3 Eos # (Auto) 0.1 Baso # (Auto) 0.0 Abs Immat Gran (auto) 0.01 Absolute Neuts (auto) 0.4 L Absolute Nucleated RBC 0.000 Nucleated RBC % (auto) 0.0 Smear Tech's Comments VERIFIED Sodium 135 Potassium 2.8 L Chloride 103 Carbon Dioxide 25 Anion Gap 10 L BUN 3 L Creatinine 0.66 Estim Creat Clear Calc 138.8 Estimated GFR > 60 Fasting Glucose 115 H Calcium 8.0 L Phosphorus 2.6 L Magnesium 1.0 L* Total Bilirubin 5.2 H AST 102 H ALT 52 H Alkaline Phosphatase 83 Total Protein 5.8 L Albumin 2.7 L Preliminary micro results at discharge 12/11/21 05:21 Blood Culture - Preliminary Blood - Venous No growth after 48 hours. 12/11/21 05:20 Blood Culture - Preliminary Blood - Venous No growth after 48 hours. 12/09/21 07:51 Blood Culture - Preliminary Blood - Venous No growth after 48 hours. Discharge Plan Discharge Patient Disposition: Left Against Medical Advice Discharge Diagnosis: Alcohol withdraw seizure Referrals: Physician,Unknown J [Primary Care Provider] - 1 Week Discharge Medications: Continued multivitamin Tablet 1 tab PO DAILY spironolactone 50 mg Tablet 50 mg PO DAILY nadolol 20 mg Tablet 40 mg PO DAILY Discharge Orders: Discharge Order (Routine); Ordered 12/13/21 Ordered By: Ronnell Esposito Care Plan Goals: AMA Health Concerns: AMA Plan of Treatment: AMA Assessment: see discharge summary Discharge Date/Time: 12/13/21 14:16
[2021-12-20 08:39] LABS: VBG Base Excess -24.2 mmol/L; VBG HCO3 6 mmol/L (22-26); VBG pCO2 27 mmHg; VBG pH 6.96 (7.32-7.43); VBG pO2 143 mmHg
== END 2021-12-13 14:16 | disposition left against medical advice (07) | DRG 53 ==
LOC: HO.ED 08:17 → HO.EDOVER 09:14 → HO.ICU 09:57 → HO.IMC 12-11 13:09
PROVIDERS: Physician Assistant; Student in an Organized Health Care Education/Training Program; Admitting Provider Internal Medicine Pulmonary Disease; Emergency Provider Emergency Medicine; PCP Internal Medicine Medical Oncology; Visit Provider Hospitalist
DX: G40.509 Epileptic seizures related to external causes, not intractable, without status epilepticus (principal); J96.00 Acute respiratory failure, unspecified whether with hypoxia or hypercapnia; K70.9 Alcoholic liver disease, unspecified; E83.39 Other disorders of phosphorus metabolism; E83.42 Hypomagnesemia; E87.6 Hypokalemia; Y90.1 Blood alcohol level of 20-39 mg/100 ml; F10.239 Alcohol dependence with withdrawal, unspecified; Z79.899 Other long term (current) drug therapy
CPT/HCPCS: 36415; 70450; 71045; 72125; 80048; 80053; 80307; 81001; 82009; 82040; 82077; 82140; 82803; 82947; 83605; 83735; 84100; 85025; 85610; 87040; 87205; 87635; 93005; 94002; 94003; 94799; 95816; 96365; 96367; 96375; 96376; 99285; C1758; J0330; J0610; J1953; J2060; J2250; J3010; J3411; J3475